=== PATIENT | male | born 1950 | race Caucasian/White ===

== ENCOUNTER 2018-05-20 21:57 | Inpatient (IN) | payer MEDICARE, OTHER ==
[~2018-05-20] VITALS: Ht 177.8 cm; Wt 143.5 kg
[~2018-05-20 21:57] MED LIST: ASPI81TA30 PO; DILT180C95 PO; FLO0.4C PO; FURO-150 PO; HYDR-4069 PO; LOP25T PO; LORA1TAB PO; NAS0.025NS BOTHNARES; POTA20TA19 PO; PRAV20TA4 PO; TRAZ-218 PO; VALS160T2 PO
[2018-05-20 22:37] LABS: BASOPHILS % (AUTO) 0.6 % (0-1); EOSINOPHILS # (AUTO) 0.1 X10'3 (0-0.9); EOSINOPHILS % (AUTO) 0.9 % (0-6); HEMATOCRIT 46.6 % (42.0-52.0); HEMOGLOBIN 15.8 g/dl (14.0-17.9); MEAN CORPUSCULAR HEMOGLOBIN 32.4 PG (27.0-31.0); MEAN CORPUSCULAR HGB CONC 33.9 % (33.0-36.5); MEAN CORPUSCULAR VOLUME 95.5 FL (78-98); MEAN PLATELET VOLUME 7.7 FL (7.4-10.4); MONOCYTES # (AUTO) 0.6 X10'3 (0-0.9); MONOCYTES % (AUTO) 7.2 % (2-12); NEUTROPHILS # (AUTO) 6.1 X10'3 (1.8-7.7); NEUTROPHILS % (AUTO) 78.3 % (42-75); PLATELET COUNT 111 X10'3 (140-440); RED BLOOD COUNT 4.88 X10'6 (4.70-6.10); RED CELL DISTRIBUTION WIDTH 13.6 % (11.5-14.5); WHITE BLOOD COUNT 7.8 X10'3 (4.5-11.0)
[2018-05-20 22:52] LABS: ALANINE AMINOTRANSFERASE 67 U/L (12-78); ALBUMIN 3.5 G/DL (3.4-5.0); ALBUMIN/GLOBULIN RATIO 0.9 (1.1-1.5); ALKALINE PHOSPHATASE 58 IU/L (46-116); ANION GAP 11 (8-16); ASPARTATE AMINO TRANSFERASE 33 U/L (10-37); BILIRUBIN,TOTAL 0.8 MG/DL (0.1-1.0); BLOOD UREA NITROGEN 20 MG/DL (7-18); BUN/CREATININE RATIO 11.4 (5.4-32.0); CALCIUM 9.1 MG/DL (8.5-10.1); CHLORIDE 98 MMOL/L (99-107); CREATININE 1.76 MG/DL (0.60-1.10); GLUCOSE 276 MG/DL (70-104); POTASSIUM 3.6 MMOL/L (3.5-5.1); SODIUM 137 MMOL/L (135-145); TOTAL CARBON DIOXIDE 28.1 MMOL/L (24-32); TOTAL PROTEIN 7.2 G/DL (6.4-8.2); eGFR 39 ML/MIN
[2018-05-20 23:03] LABS: PROTHROMBIN TIME 10.1 SECONDS (9.0-12.0)
[2018-05-20] MEDS ORDERED: normal saline 1000ml 1,000 ML IV ONE (23:05)
[2018-05-20 23:25] LABS: PARTIAL THROMBOPLASTIN TIME 28 SECONDS (22-32)
[2018-05-20 23:37] LABS: OCCULT BLOOD STOOL POSITIVE (Neg)
[2018-05-21] MEDS ORDERED: VALS1TAB79 PO (00:20)
[2018-05-21] MEDS ORDERED: EPLE25TA4 PO (00:20)
[2018-05-21] MEDS ORDERED: CARV-50 PO ×2 (00:20)
[2018-05-21] MEDS ORDERED: LANTUS SQ (01:03)
[2018-05-21] MEDS ORDERED: TERA5CAP4 PO (01:03)
[2018-05-21] MEDS ORDERED: CYAN100070 PO (01:03)
[2018-05-21] MEDS ORDERED: OMEG1CAP PO (01:03)
[2018-05-21] MEDS ORDERED: MAGN500C16 PO (01:03)
[2018-05-21] MEDS ORDERED: SEMA0.25 PO (01:03)
[2018-05-21] MEDS ORDERED: BUDE10.2 INH (01:03)
[2018-05-21] MEDS ORDERED: CHOL100046 PO (01:03)
[2018-05-21] MEDS ORDERED: APIX5TAB3 PO (01:03)
[2018-05-21] MEDS ORDERED: DILT180C PO (01:03)
[2018-05-21] MEDS ORDERED: TRAZ-219 PO (01:04)
[2018-05-21] MEDS ORDERED: HYDR-4353 PO (01:04)
[2018-05-21] MEDS ORDERED: morphine 2 MG/ML inj. syringe IV PRN ×2 (02:05)
[2018-05-21] MEDS ORDERED: mag hydrox/Alum hydrox/simeth 30ml oral suspension PO PRN (02:05)
[2018-05-21] MEDS ORDERED: ondansetron/PF 4mg/2ml inj IV PRN (02:05)
[2018-05-21] MEDS ORDERED: magnesium hydroxide 30ml (MOM) UD suspension PO PRN (02:05)
[2018-05-21] MEDS ORDERED: acetaminophen 325mg tablet PO PRN (02:05)
[2018-05-21] MEDS ORDERED: SEMAGLUTIDE PO SCH (02:15)
[2018-05-21] MEDS ORDERED: Semaglutide (Ozempic) PO SCH (02:31)
[2018-05-21 02:32] LABS: BASOPHILS % (AUTO) 0.1 % (0-1); EOSINOPHILS # (AUTO) 0.1 X10'3 (0-0.9); EOSINOPHILS % (AUTO) 1.1 % (0-6); HEMATOCRIT 43.7 % (42.0-52.0); LYMPHOCYTES % (AUTO) 14.4 % (21-51); MEAN CORPUSCULAR HEMOGLOBIN 32.8 PG (27.0-31.0); MEAN CORPUSCULAR HGB CONC 34.4 % (33.0-36.5); MEAN CORPUSCULAR VOLUME 95.5 FL (78-98); MEAN PLATELET VOLUME 7.5 FL (7.4-10.4); MONOCYTES # (AUTO) 0.5 X10'3 (0-0.9); MONOCYTES % (AUTO) 7.9 % (2-12); NEUTROPHILS # (AUTO) 5.1 X10'3 (1.8-7.7); NEUTROPHILS % (AUTO) 76.5 % (42-75); PLATELET COUNT 96 X10'3 (140-440); RED BLOOD COUNT 4.58 X10'6 (4.70-6.10); RED CELL DISTRIBUTION WIDTH 13.3 % (11.5-14.5); WHITE BLOOD COUNT 6.7 X10'3 (4.5-11.0)
[2018-05-21] MEDS ORDERED: SEMA0.25 SQ (02:55)
[2018-05-21] MEDS: albuterol 2.5 MG/3 ML nebule NEB SCH ×4 (04:23→20:40)
[2018-05-21] MEDS ORDERED: terazosin 5mg capsule PO ONE (04:35)
[2018-05-21] MEDS ORDERED: carVEDilol 12.5mg tablet PO ONE (04:35)
[2018-05-21] MEDS ORDERED: losartan 50mg tablet PO ONE (04:35)
[2018-05-21 04:50] VITALS: BP 147/77
[2018-05-21] MEDS: carVEDilol 12.5mg tablet PO SCH (04:51)
[2018-05-21] MEDS ORDERED: HYDROcodone/acetaminophen 10/325mg tab PO ONE (05:20)
[2018-05-21 07:00] VITALS: BP 112/64
[2018-05-21] MEDS ORDERED: aspirin 81mg tablet.DR PO SCH (08:00)
[2018-05-21] MEDS ORDERED: potassium Cl 20 mEq SR tablet PO SCH (08:00)
[2018-05-21] MEDS: budesonide 0.5mg/2ml UD nebule IH SCH ×2 (08:10→20:40)
[2018-05-21] MEDS: omega-3 acid ethyl esters 1GM capsule PO SCH ×3 (08:43→19:39)
[2018-05-21] MEDS: HYDROcodone/acetaminophen 10/325mg tab PO SCH ×3 (08:44→21:00)
[2018-05-21] MEDS: losartan 50mg tablet PO SCH (08:44)
[2018-05-21] MEDS: HYDROchlorothiazide 12.5mg capsule PO SCH (08:44)
[2018-05-21] MEDS: furosemide 40mg tablet PO SCH (08:44)
[2018-05-21] MEDS: vitamin D (cholecalciferol) 1,000 unit tablet PO SCH (08:44)
[2018-05-21] MEDS: magnesium oxide 400mg tablet PO SCH (08:45)
[2018-05-21] MEDS: diltiazem CD 180mg cap (once-daily) PO SCH (08:45)
[2018-05-21] MEDS: insulin glargine (Lantus) pen - multi-dose SQ SCH ×2 (08:49→20:00)
[2018-05-21 09:00] LABS: HEMATOCRIT 42.9 % (42.0-52.0); HEMOGLOBIN 14.6 g/dl (14.0-17.9); MEAN CORPUSCULAR HEMOGLOBIN 32.5 PG (27.0-31.0); MEAN CORPUSCULAR HGB CONC 34.1 % (33.0-36.5); MEAN CORPUSCULAR VOLUME 95.3 FL (78-98); MEAN PLATELET VOLUME 7.8 FL (7.4-10.4); PLATELET COUNT 94 X10'3 (140-440); RED CELL DISTRIBUTION WIDTH 13.8 % (11.5-14.5); WHITE BLOOD COUNT 5.3 X10'3 (4.5-11.0)
[2018-05-21] MEDS ORDERED: magnesium Cl slow-release 64mg tablet PO PRN (10:30)
[2018-05-21] MEDS ORDERED: magnesium 4gm in 100ml NS 100 ML IV PRN (10:30)
[2018-05-21] MEDS ORDERED: potassium Cl 40MEQ/NS 500ml 500 ML IV PRN ×2 (10:30)
[2018-05-21] MEDS ORDERED: potassium Cl 20 mEq SR tablet PO PRN ×2 (10:30)
[2018-05-21 11:00] VITALS: BP 140/58
[2018-05-21] MEDS ORDERED: glucagon, human recombinant 1mg kit SUBCUT PRN (12:25)
[2018-05-21] MEDS ORDERED: dextrose 50%-water 50ml dispensing syringe IV PRN ×2 (12:25)
[2018-05-21] MEDS ORDERED: MESSAGE TO PHARMACY PO ONE (12:25)
[2018-05-21] MEDS ORDERED: dextrose ORAL solution 15 GM/59 ML bottle PO PRN ×2 (12:25)
[2018-05-21] MEDS ORDERED: PEG 3350/Na sulf,bicarb,Cl/KCl oral sol 4 liter bottle PO ONE (13:15)
[2018-05-21] MEDS: insulin Lispro (HumaLOG) vial - multi-dose SQ SCH ×2 (13:46→19:19)
[2018-05-21 14:08] LABS: HEMATOCRIT 43.3 % (42.0-52.0); HEMOGLOBIN 14.8 g/dl (14.0-17.9); MEAN CORPUSCULAR HEMOGLOBIN 32.6 PG (27.0-31.0); MEAN CORPUSCULAR HGB CONC 34.2 % (33.0-36.5); MEAN CORPUSCULAR VOLUME 95.1 FL (78-98); MEAN PLATELET VOLUME 7.9 FL (7.4-10.4); PLATELET COUNT 81 X10'3 (140-440); RED BLOOD COUNT 4.55 X10'6 (4.70-6.10); RED CELL DISTRIBUTION WIDTH 13.8 % (11.5-14.5); WHITE BLOOD COUNT 4.8 X10'3 (4.5-11.0)
[2018-05-21 19:00] VITALS: BP 154/81
[2018-05-21] MEDS ORDERED: traZODone 50mg tablet PO SCH (21:00)
[2018-05-21] MEDS ORDERED: carVEDilol 12.5mg tablet PO SCH (21:00)
[2018-05-21] MEDS ORDERED: terazosin 5mg capsule PO SCH (21:00)
[2018-05-21] MEDS: potassium Cl 20 mEq SR tablet PO SCH (21:22)
[2018-05-22] VITALS (11 sets, daily range): BP systolic 120–165; BP diastolic 64–97
[2018-05-22] MEDS: albuterol 2.5 MG/3 ML nebule NEB SCH ×2 (02:41→08:11)
[2018-05-22 05:27] LABS: BASOPHILS % (AUTO) 0.3 % (0-1); EOSINOPHILS # (AUTO) 0.1 X10'3 (0-0.9); EOSINOPHILS % (AUTO) 1.2 % (0-6); HEMATOCRIT 42.7 % (42.0-52.0); HEMOGLOBIN 14.6 g/dl (14.0-17.9); LYMPHOCYTES # (AUTO) 1.6 X10'3 (1.1-4.8); LYMPHOCYTES % (AUTO) 34.9 % (21-51); MEAN CORPUSCULAR HEMOGLOBIN 32.4 PG (27.0-31.0); MEAN CORPUSCULAR VOLUME 95.2 FL (78-98); MEAN PLATELET VOLUME 8.2 FL (7.4-10.4); MONOCYTES # (AUTO) 0.7 X10'3 (0-0.9); MONOCYTES % (AUTO) 14.4 % (2-12); NEUTROPHILS # (AUTO) 2.3 X10'3 (1.8-7.7); NEUTROPHILS % (AUTO) 49.2 % (42-75); PLATELET COUNT 91 X10'3 (140-440); RED BLOOD COUNT 4.49 X10'6 (4.70-6.10); RED CELL DISTRIBUTION WIDTH 13.9 % (11.5-14.5); WHITE BLOOD COUNT 4.6 X10'3 (4.5-11.0)
[2018-05-22 05:41] LABS: ALANINE AMINOTRANSFERASE 50 U/L (12-78); ALBUMIN 2.9 G/DL (3.4-5.0); ALBUMIN/GLOBULIN RATIO 0.9 (1.1-1.5); ANION GAP 10 (8-16); ASPARTATE AMINO TRANSFERASE 30 U/L (10-37); BILIRUBIN,TOTAL 0.9 MG/DL (0.1-1.0); BLOOD UREA NITROGEN 15 MG/DL (7-18); BUN/CREATININE RATIO 11.9 (5.4-32.0); CALCIUM 8.8 MG/DL (8.5-10.1); CHLORIDE 101 MMOL/L (99-107); CREATININE 1.26 MG/DL (0.60-1.10); GLUCOSE 165 MG/DL (70-104); MAGNESIUM 1.5 MG/DL (1.5-2.4); PHOSPHORUS 2.9 MG/DL (2.3-4.5); SODIUM 140 MMOL/L (135-145); TOTAL CARBON DIOXIDE 28.6 MMOL/L (24-32); TOTAL PROTEIN 6.1 G/DL (6.4-8.2); eGFR 57 ML/MIN
[2018-05-22 05:42] LABS: ALKALINE PHOSPHATASE 36 IU/L (46-116)
[2018-05-22] MEDS: insulin glargine (Lantus) pen - multi-dose SQ SCH (08:00)
[2018-05-22] MEDS: losartan 50mg tablet PO SCH (08:08)
[2018-05-22] MEDS: diltiazem CD 180mg cap (once-daily) PO SCH (08:08)
[2018-05-22] MEDS: potassium Cl 20 mEq SR tablet PO SCH ×2 (08:09→13:31)
[2018-05-22] MEDS: omega-3 acid ethyl esters 1GM capsule PO SCH (08:09)
[2018-05-22] MEDS: furosemide 40mg tablet PO SCH (08:09)
[2018-05-22] MEDS: carVEDilol 12.5mg tablet PO SCH (08:10)
[2018-05-22] MEDS: magnesium oxide 400mg tablet PO SCH (08:10)
[2018-05-22] MEDS: HYDROchlorothiazide 12.5mg capsule PO SCH (08:11)
[2018-05-22] MEDS: vitamin D (cholecalciferol) 1,000 unit tablet PO SCH (08:11)
[2018-05-22] MEDS: HYDROcodone/acetaminophen 10/325mg tab PO SCH ×2 (08:12→13:00)
[2018-05-22] MEDS: budesonide 0.5mg/2ml UD nebule IH SCH (08:12)
[2018-05-22] MEDS ORDERED: fentaNYL/PF 50MCG/1 ML 2ML syringe ONE (10:43)
[2018-05-22] MEDS ORDERED: MIDAZolam 5mg/5ml vial ONE (10:43)
[2018-05-22] MEDS ORDERED: MAGN400O6 PO (13:13)
[2018-05-27] MEDS ORDERED: Semaglutide (Ozempic) PO SCH (08:00)
== END 2018-05-22 14:19 | disposition home or self-care (01) | DRG 378 ==
LOC: ER 21:58 → ED HOLD 05-21 02:01 → SUR 3N 05-21 04:01
PROVIDERS: ADMIT Internal Medicine; ATTEND Family Medicine
PROC: 0DBP8ZX Excision of Rectum, Via Natural or Artificial Opening Endoscopic, Diagnostic (ICD-10-PCS; principal; 2018-05-22)
DX: K57.31 Diverticulosis of large intestine without perforation or abscess with bleeding (principal); E24.9 Cushing's syndrome, unspecified; I82.5Y2 Chronic embolism and thrombosis of unspecified deep veins of left proximal lower extremity; E11.9 Type 2 diabetes mellitus without complications; E78.5 Hyperlipidemia, unspecified; G47.33 Obstructive sleep apnea (adult) (pediatric); M54.9 Dorsalgia, unspecified; I11.0 Hypertensive heart disease with heart failure; G89.29 Other chronic pain; I50.9 Heart failure, unspecified; I25.10 Atherosclerotic heart disease of native coronary artery without angina pectoris; K62.1 Rectal polyp; Z79.01 Long term (current) use of anticoagulants; Z85.46 Personal history of malignant neoplasm of prostate; Z86.718 Personal history of other venous thrombosis and embolism; Z87.440 Personal history of urinary (tract) infections
CPT/HCPCS: 36415; 45385; 80053; 82272; 82378; 82948; 83036; 83735; 84100; 85025; 85027; 85610; 85730; 87070; 88305; 94640; 94760; 99152; 99153; A4620; G0378; J1815; J2250; J2270; J3010; J3480; J7030; J7626

== ENCOUNTER 2018-10-01 20:35 | Emergency (ER) | payer MEDICARE, OTHER ==
[~2018-10-01] VITALS: Ht 177.8 cm; Wt 145.0 kg
[~2018-10-01 20:35] MED LIST changes: +APIX5TAB3 PO; +BUDE10.2 INH; +CARV-50 PO; +CHOL100046 PO; +CYAN100070 PO; +DILT180C PO; -DILT180C95 PO; +EPLE25TA4 PO; -FLO0.4C PO; -HYDR-4069 PO; +HYDR-4353 PO; +LANTUS SQ; -LOP25T PO; -LORA1TAB PO; +MAGN400O6 PO; +MAGN500C16 PO; -NAS0.025NS BOTHNARES; +OMEG1CAP PO; -PRAV20TA4 PO; +SEMA0.25 SQ; +TERA5CAP4 PO; -TRAZ-218 PO; +TRAZ-219 PO; -VALS160T2 PO; +VALS1TAB79 PO
--- NOTE | 2018-10-01 21:21 | NUR ---
pt taken to room 19 for an ekg
[2018-10-01 22:07] LABS: BASOPHILS % (AUTO) 0.7 % (0-1); EOSINOPHILS # (AUTO) 0.2 X10'3 (0-0.9); EOSINOPHILS % (AUTO) 2.8 % (0-6); HEMATOCRIT 44.2 % (42.0-52.0); HEMOGLOBIN 15.2 g/dl (14.0-17.9); LYMPHOCYTES # (AUTO) 1.9 X10'3 (1.1-4.8); LYMPHOCYTES % (AUTO) 28.6 % (21-51); MEAN CORPUSCULAR HEMOGLOBIN 33.1 PG (27.0-31.0); MEAN CORPUSCULAR HGB CONC 34.4 g/dL (33.0-36.5); MEAN CORPUSCULAR VOLUME 96.1 FL (78-98); MEAN PLATELET VOLUME 7.9 FL (7.4-10.4); MONOCYTES # (AUTO) 0.7 X10'3 (0-0.9); MONOCYTES % (AUTO) 10.5 % (2-12); NEUTROPHILS # (AUTO) 3.7 X10'3 (1.8-7.7); NEUTROPHILS % (AUTO) 57.4 % (42-75); PLATELET COUNT 119 X10'3 (140-440); RED CELL DISTRIBUTION WIDTH 13.9 % (11.5-14.5); WHITE BLOOD COUNT 6.5 X10'3 (4.5-11.0)
[2018-10-01 22:19] LABS: PARTIAL THROMBOPLASTIN TIME 28 SECONDS (22-32)
[2018-10-01 22:23] LABS: ALANINE AMINOTRANSFERASE 52 U/L (12-78); ALBUMIN 3.3 G/DL (3.4-5.0); ALBUMIN/GLOBULIN RATIO 0.9 (1.1-1.5); ALKALINE PHOSPHATASE 53 IU/L (46-116); ANION GAP 12 (8-16); ASPARTATE AMINO TRANSFERASE 33 U/L (10-37); BILIRUBIN,TOTAL 0.6 MG/DL (0.1-1.0); BLOOD UREA NITROGEN 22 MG/DL (7-18); BUN/CREATININE RATIO 14.8 (5.4-32.0); CALCIUM 9.5 MG/DL (8.5-10.1); CHLORIDE 100 MMOL/L (99-107); CREATININE 1.49 MG/DL (0.60-1.10); GLUCOSE 274 MG/DL (70-104); POTASSIUM 3.6 MMOL/L (3.5-5.1); SODIUM 140 MMOL/L (135-145); TOTAL CARBON DIOXIDE 27.6 MMOL/L (24-32); TOTAL PROTEIN 6.9 G/DL (6.4-8.2); eGFR 47 ML/MIN
[2018-10-01 22:58] VITALS: BP 169/95
== END 2018-10-02 00:34 | disposition home or self-care (01) ==
LOC: ER 20:36
DX: M25.571 Pain in right ankle and joints of right foot (principal); M79.604 Pain in right leg; I11.0 Hypertensive heart disease with heart failure; I50.9 Heart failure, unspecified; I25.10 Atherosclerotic heart disease of native coronary artery without angina pectoris; E11.9 Type 2 diabetes mellitus without complications; G89.29 Other chronic pain; M54.9 Dorsalgia, unspecified; Z86.718 Personal history of other venous thrombosis and embolism; Z95.1 Presence of aortocoronary bypass graft; Z88.2 Allergy status to sulfonamides; Z88.8 Allergy status to other drugs, medicaments and biological substances; Z79.82 Long term (current) use of aspirin; Z79.4 Long term (current) use of insulin
CPT/HCPCS: 36415; 71046; 80053; 84484; 85025; 85610; 85730; 93005; 93971; 99284

== ENCOUNTER 2019-07-31 23:35 | Emergency (ER) | payer OTHER, MEDICARE ==
[~2019-07-31] VITALS: Ht 177.8 cm; Wt 131.8 kg
[~2019-07-31 23:35] MED LIST changes: -DILT180C PO; +DILT180C90 PO; -TRAZ-219 PO; +TRAZ-256 PO; -VALS1TAB79 PO; +VALS1TAB80 PO
[2019-07-31 23:45] VITALS: BP 173/90
== END 2019-08-01 00:35 | disposition home or self-care (01) ==
LOC: ER 23:35
DX: S16.1XXA Strain of muscle, fascia and tendon at neck level, initial encounter (principal); S39.012A Strain of muscle, fascia and tendon of lower back, initial encounter; M62.830 Muscle spasm of back; I25.10 Atherosclerotic heart disease of native coronary artery without angina pectoris; I11.0 Hypertensive heart disease with heart failure; I50.9 Heart failure, unspecified; E11.9 Type 2 diabetes mellitus without complications; G89.29 Other chronic pain; Z86.718 Personal history of other venous thrombosis and embolism; Z95.1 Presence of aortocoronary bypass graft; Z98.890 Other specified postprocedural states; Z88.2 Allergy status to sulfonamides; Z88.8 Allergy status to other drugs, medicaments and biological substances; Z79.82 Long term (current) use of aspirin; Z79.899 Other long term (current) drug therapy; Z79.4 Long term (current) use of insulin; V49.88XA Car occupant (driver) (passenger) injured in other specified transport accidents, initial encounter; Y93.89 Activity, other specified; Y92.413 State road as the place of occurrence of the external cause; Y99.9 Unspecified external cause status
CPT/HCPCS: 99281